=== PATIENT | female | born 1990 | race Caucasian/White ===

== ENCOUNTER 2023-08-01 20:19 | Emergency (ER) | payer MEDICAID ==
[~2023-08-01] VITALS: Ht 144.8 cm; Wt 86.0 kg
[2023-08-01 21:17] VITALS: O2SAT 99
[2023-08-01] MEDS ORDERED: DEXAMETHASONE 10 MG/ML VIAL IM ONE (21:30)
[2023-08-01] MEDS ORDERED: DIPHENHYDRAMINE 25MG CAPSULE PO ONE (21:30)
[2023-08-01] MEDS ORDERED: ONDANSETRON 4MG ODT PO ONE (21:30)
[2023-08-01] MEDS ORDERED: ACETAMINOPHEN 325MG TABLET PO ONE (21:30)
[2023-08-01] MEDS ORDERED: KETOROLAC 30MG/ML VIAL IM ONE (21:30)
[2023-08-01] MEDS ORDERED: DIPHENHYDRAMINE 25MG CAPSULE PO NR (23:15)
[2023-08-01] MEDS ORDERED: DEXAMETHASONE 10 MG/ML VIAL IM NR (23:15)
[2023-08-01] MEDS ORDERED: ONDANSETRON 4MG ODT PO NR (23:15)
[2023-08-01] MEDS ORDERED: ACETAMINOPHEN 325MG TABLET PO NR (23:15)
[2023-08-01 23:21] VITALS: TEMP 97.9
[2023-08-01] MEDS: KETOROLAC 30MG/ML VIAL IM NR ×3 (23:23→23:25)
[2023-08-01 23:25] VITALS: BP 128/81; PULSE 80; RESP 16
== END 2023-08-02 00:38 | disposition home or self-care (01) ==
LOC: ER 20:19
DX: G43.909 Migraine, unspecified, not intractable, without status migrainosus (principal)
CPT/HCPCS: 81025; 96372; 99284; Q0163; Q0162; J1100; J1885; Z7610